=== PATIENT | female | born 1970 | race Caucasian/White ===

== ENCOUNTER → 2017-03-29 | Outpatient (CLI) | payer BC ==
--- NOTE | ~2017-03-29 | US85 ---
[facility] A Service of [facility] & [facility] RADIOLOGY TEXT RESULTS PATIENT: CONSTANTIN CORMIER LOCATION: CNIV : 70 UNIT #: [id number] AGE: [address]: CHRISTIANO VENTURA APRN SEX: F ORDER DR: [id number] [facility] [address] [place], [place] [address] [id number] O MR#: [id number] Acc #: [id number] NAME: CONSTANTIN CORMIER : 1970 SEX: F STUDY DATE/TIME: 03/29/2017 13:46 UNIT: [facility] ROOM: STUDY [place]CRIPTION: [facility] [place] [employer] Attending Physician: Christiano Ventura Aprn Referring Physician: Christiano Ventura Aprn Ordering Physician: Christiano Ventura Aprn Primary Care Physician: Caroline Jha M.D. MEDICAL IMAGING REPORT This report is preliminary unless electronic signature is present EXAM Left leg vein Doppler, 03/29/2017. INDICATIONS Left leg pain for the last 3 months. TECHNIQUE Venous ultrasound examination of the left lower extremity was performed using grayscale, spectral Doppler and color flow Doppler imaging. FINDINGS The examination is negative. There is no evidence of left lower extremity deep venous thrombus from the groin to the lower calf. Visualized greater saphenous vein is also patent. IMPRESSION Negative examination. No evidence of left lower extremity DVT. Dictated by... Darvin Cage Jr., M.D. THIS IS AN ELECTRONICALLY VERIFIED REPORT Darvin Cage Jr., M.D. at 03/31/2017 2:28 PM KATHIE/joe TD: 03/29/2017 21:29 JOB #: [id number] MEDICAL IMAGING REPORT Page 1 of 1 COPY
== END | disposition home or self-care (01) ==
LOC: CNIV 13:09
DX: R20.0 Anesthesia of skin (principal); R20.2 Paresthesia of skin; M79.605 Pain in left leg
CPT/HCPCS: 93971